=== PATIENT | female | born 1975 | race Caucasian/White ===

== ENCOUNTER 2021-06-02 09:34 | Emergency (ER) | payer OTHER, SELFPAY ==
[2021-06-02 09:52] VITALS: BP 144/90; PULSE 89; RESP 20; TEMP 36.6; O2SAT 100
--- NOTE | 2021-06-02 09:57 | ED.SKABFB ---
HPI - Skin/Abscess/Foreign Bdy General Chief complaint: Skin/Abscess/Foreign Body Stated complaint: Insect Bite Time Seen by Provider: 06/02/21 09:57 Source: patient Mode of arrival: ambulatory Limitations: no limitations History of Present Illness HPI narrative: Radha Gonzalez is a 46 yo female with PMH of rheumatoid arthritis [facility] with area of cellulitis on her right lower abdomen, started 2 days ago has gotten rather is not firm, she is concerned it was a spider bite Patient has rheumatoid arthritis is and is on Xeljanz and methotrexate-is considered immune suppressed Related Data Home Medications Medication Instructions Recorded Confirmed folic acid 06/02/21 methotrexate sodium 06/02/21 tofacitinib [Xeljanz XR] mg PO 06/02/21 Allergies Allergy/AdvReac Type Severity Reaction Status Date / Time No Known Allergies Allergy Mild Unverified 10/11/18 14:49 Review of Systems Review of Systems: CONSTITUTIONAL: Denies fever, chills, sweats. EYES: Denies visual changes, redness, discharge. ENT: Denies rhinorrhea, congestion, sore throat, otalgia. CARDIOVASCULAR: Denies chest pain, palpitations, edema. RESPIRATORY: Denies dyspnea, wheezing, cough GASTROINTESTINAL: Denies abdominal pain, nausea, vomiting, diarrhea. GENITOURINARY: Denies dysuria, hematuria, abnormal discharge SKIN: Denies rash or itching. 4 x 5 area of redness on the right lower quadrant NEUROLOGIC: Denies numbness, or focal weakness. PSYCHIATRIC: Denies anxiety or depression. PMFSH Past Medical History Medical History Rheumatoid arthritis Social History Social History (Updated 06/02/21 @ 10:08 by Zuleika Barillas CNP) Smoking status: Never smoker Substance use: former Comments At time of signature, I agree with nursing past medical, surgical, social and family history. There is no relevant family history pertinent to the presenting complaint. Exam Narrative: GENERAL: This is a well-nourished, well-developed patient, in mild distress. HEAD: normocephalic, atraumatic. EYES: Sclera clear/white. Vision is grossly intact. EARS: External ears normal, Hearing grossly intact. NOSE: External nose normal without nasal discharge, nares without redness, no rhinorrhea. THROAT: Mucous membranes moist, NECK: Neck supple, non-tender CARDIOVASCULAR: Regular rate and rhythm without murmurs, gallops, or rubs. RESPIRATORY: Clear to auscultation. Breath sounds equal bilaterally. No wheezes, rales, or rhonchi. GASTROINTESTINAL: Abdomen soft, 4.5 area of erythema lower right quadrant with minimal induration and no drainage, no central white area SKIN: warm, intact with no suspicious lesions or rash, good texture and turgor. NEURO: awake, alert, and oriented to person, place and time. There were no obvious focal neurologic abnormalities. Steady gait EXTREMITIES: Normal range of motion. BACK: Nontender without deformity Course Course Emergency Course: Patient has red area to the lower right quadrant Started on Bactrim and cephalexin, warm soaks to area Follow-up with primary care physician Vital Signs Vital signs: Vital Signs Temperature 97.9 F 06/02/21 09:52 Pulse Rate 89 06/02/21 09:52 Respiratory Rate 20 06/02/21 09:52 Blood Pressure 144/90 H 06/02/21 09:52 Pulse Oximetry 100 06/02/21 09:52 Temperature 97.9 F 06/02/21 09:52 Pulse Rate 89 06/02/21 09:52 Respiratory Rate 20 06/02/21 09:52 Blood Pressure 144/90 H 06/02/21 09:52 Pulse Oximetry 100 06/02/21 09:52 MDM - Skin/Abscess/Foreign Bdy Differential Diagnosis Differential diagnosis: Likely abscess of skin or subcutaneous tissue, insect bites, contact dermatitis and other Critical Care Time Critical Care Time Critical Care Time: No Discharge Plan Discharge Clinical Impression: Cellulitis Qualifiers: Site of cellulitis: trunk Site of cellulitis of trunk: abdomi
== END 2021-06-02 10:30 | disposition home or self-care (01) ==
PROVIDERS: Emergency Provider Nurse Practitioner; PCP Family Medicine
DX: L03.311 Cellulitis of abdominal wall (principal); M06.9 Rheumatoid arthritis, unspecified